=== PATIENT | female | born 1945 | race Caucasian/White ===

== ENCOUNTER → 2016-07-22 | Outpatient (CLI) | payer MEDICARE, BC | END | disposition home or self-care (01) | LOC: MW.CHOBGYN 09:43 | PROVIDERS: ATTEND Nurse Practitioner Women's Health | DX: R39.9 Unspecified symptoms and signs involving the genitourinary system (principal); N39.0 Urinary tract infection, site not specified | CPT/HCPCS: 81001; G0463 ==

== ENCOUNTER 2020-06-18 08:52 | Emergency (ER) | payer MEDICARE, BC ==
--- NOTE | 2020-06-18 09:03 | EDM.PDOC ---
ED HPI GENERAL MEDICAL PROBLEM - General Stated Complaint: POSSIBLE COVID POSITIVE Time Seen by Provider: 06/18/20 08:59 Source of Information: Reports: Patient History Limitations: Reports: No Limitations - History of Present Illness INITIAL COMMENTS - FREE TEXT/NARRATIVE: 75-year-old female with history of hypothyroidism only presents with Covid symptoms. Over the past 2 days, she notes cough with sputum production, generalized malaise, myalgias, ageusia, anosmia, fever, shortness of breath, chest congestion, diarrhea. ROS: A 10-point review of systems, other than pertinent positives and negatives as stated per HPI, is otherwise negative Past medical history: No additional pertinent history Past Surgical history: No additional pertinent history Social history: No additional pertinent history Family history: No additional pertinent history PHYSICAL EXAM General: AOx4, GCS = 15, No distress HEENT: dry mucous membrane Neck: supple, no meningismus, no Kernig or Brudzinski Cardiac: S1S2 RRR Respiratory: CTAB, no crackles or rales, no wheezing Abdomen: Soft, nontender, no rebound or guarding, nondistended, no pulsatile mass. Back: nontender Musculoskeletal: NVI distally, no deformity Neuro: No focal deficits, CN 2 - 12 WNL. - Related Data Allergies Allergy/AdvReac Type Severity Reaction Status Date / Time risedronate sodium Allergy Swelling Verified 06/18/20 09:15 [From Actonel] Home Meds: Home Meds Levothyroxine Sodium [Synthroid] 100 mcg PO DAILY 10/10/13 [History] Aspirin [Aspirin EC] 325 mg PO DAILY #30 tablet. 01/04/16 [Rx] dexAMETHasone [Decadron] 6 mg PO DAILY 5 Days #5 tablet 06/18/20 [Rx] Past Medical History HEENT History: Reports: Impaired Vision DENTAL SCHEDULER History: Reports: Other (See Below) Other DENTAL SCHEDULER History: ovarian cyst removal Endocrine/Metabolic History: Reports: Other (See Below) Other Endocrine/Metabolic History: thyroid problems - Past Surgical History HEENT Surgical History: Reports: Other (See Below) Social & Family History - Family History Cardiac: Reports: [place] Respiratory: Reports: Asthma GI: Reports: None : Reports: None OBGYN: Reports: None Musculoskeletal: Reports: Arthritis Neurological: Reports: None Endocrine/Metabolic: Reports: Diabetes, Type I Oncologic: Reports: Breast ED ROS GENERAL - Review of Systems Review Of Systems: See Below (see dictation) ED EXAM, GENERAL - Physical Exam Exam: See Below (see dictation) Course - Vital Signs Last Recorded V/S: Last Vital Signs Temp 97.4 F 06/18/20 09:17 Pulse 93 06/18/20 10:37 Resp 20 06/18/20 10:37 BP 101/62 06/18/20 10:37 Pulse Ox 94 L 06/18/20 10:37 - Orders/Labs/Meds Orders: Active Orders 24 hr Category Date Time Status Cardiac Monitoring [RC] . DIRECTED Care 06/18/20 09:29 Active Pulse Oximetry [RC] ASDIRECTED Care 06/18/20 09:29 Active Sodium Chloride 0.9% [Saline Flush] Med 06/18/20 09:29 Active 10 ml FLUSH ASDIRECTED PRN Sodium Chloride 0.9% [Saline Flush] Med 06/18/20 09:29 Active 2.5 ml FLUSH ASDIRECTED PRN Saline Lock Insert [OM.PC] Stat Oth 06/18/20 09:29 Ordered Medication Orders Sodium Chloride (Saline Flush) 10 ml FLUSH ASDIRECTED PRN PRN Reason: Keep Vein Open Sodium Chloride (Saline Flush) 2.5 ml FLUSH ASDIRECTED PRN PRN Reason: Keep Vein Open Labs: Laboratory Tests 06/18/20 06/18/20 06/18/20 Range/Units 09:32 09:32 09:32 WBC 5.00 (4.0-11.0) K/uL RBC 5.12 (4.30-5.90) M/uL Hgb 15.2 (12.0-16.0) g/dL Hct 44.9 (36.0-46.0) % MCV 87.7 (80.0-98.0) fL MCH 29.7 (27.0-32.0) pg MCHC 33.9 (31.0-37.0) g/dL RDW Std Deviation 43.3 (28.0-62.0) fl RDW Coeff of Geri 13 (11.0-15.0) % Plt Count 170 (150-400) K/uL MPV 10.50 (7.40-12.00) fL Neut % (Auto) 76.8 (48.0-80.0) % Lymph % (Auto) 9.6 L (16.0-40.0) % [place] % (Auto) 13.4 (0.0-15.0) % Eos % (Auto) 0.0 (0.0-7.0) % Baso % (Auto) 0.2 (0.0-1.5) % Neut # (Auto) 3.8 (1.4-5.7) K/uL Lymph # (Auto) 0.5 L (0.6-2.4) K/uL [place] # (Auto) 0.7 (0.0-0.8) K/uL Eos # (Auto) 0.0 (0.0-0.7) K/uL Baso # (Auto) 0.0 (0.0-0.1) K/uL Nucleated RBC % 0.0 /100WBC Nucleated RBCs # 0 K/uL Sodium 138 (136-145) mmol/L Potassium 3.7 (3.5-5.1) mmol/L Chloride 101 (98-107) mmol/L Carbon Dioxide 22.9 (21.0-32.0) mmol/L BUN 13 (7.0-18.0) mg/dL Creatinine 1.1 H (0.6-1.0) mg/dL Est Cr Clr Drug Dosing 32.32 mL/min Estimated GFR (MDRD) 48.2 ml/min Glucose 139 H (74-106) mg/dL Calcium 8.6 (8.5-10.1) mg/dL Total Bilirubin 0.6 (0.2-1.0) mg/dL AST 29 (15-37) IU/L ALT 29 (14-63) IU/L Alkaline Phosphatase 69 (46-116) U/L Troponin I < 0.050 (0.000-0.056) ng/mL B-Natriuretic Peptide 305 H (<100) PG/ML Total Protein 7.1 (6.4-8.2) g/dL Albumin 3.4 (3.4-5.0) g/dL Globulin 3.7 (2.6-4.0) g/dL Albumin/Globulin Ratio 0.9 (0.9-1.6) SARS-CoV-2 RNA (TIAGO) (NEGATIVE) 06/18/20 Range/Units 09:39 WBC (4.0-11.0) K/uL RBC (4.30-5.90) M/uL Hgb (12.0-16.0) g/dL Hct (36.0-46.0) % MCV (80.0-98.0) fL MCH (27.0-32.0) pg MCHC (31.0-37.0) g/dL RDW Std Deviation (28.0-62.0) fl RDW Coeff of Geri (11.0-15.0) % Plt Count (150-400) K/uL MPV (7.40-12.00) fL Neut % (Auto) (48.0-80.0) % Lymph % (Auto) (16.0-40.0) % [place] % (Auto) (0.0-15.0) % Eos % (Auto) (0.0-7.0) % Baso % (Auto) (0.0-1.5) % Neut # (Auto) (1.4-5.7) K/uL Lymph # (Auto) (0.6-2.4) K/uL [place] # (Auto) (0.0-0.8) K/uL Eos # (Auto) (0.0-0.7) K/uL Baso # (Auto) (0.0-0.1) K/uL Nucleated RBC % /100WBC Nucleated RBCs # K/uL Sodium (136-145) mmol/L Potassium (3.5-5.1) mmol/L Chloride (98-107) mmol/L Carbon Dioxide (21.0-32.0) mmol/L BUN (7.0-18.0) mg/dL Creatinine (0.6-1.0) mg/dL Est Cr Clr Drug Dosing mL/min Estimated GFR (MDRD) ml/min Glucose (74-106) mg/dL Calcium (8.5-10.1) mg/dL Total Bilirubin (0.2-1.0) mg/dL AST (15-37) IU/L ALT (14-63) IU/L Alkaline Phosphatase (46-116) U/L Troponin I (0.000-0.056) ng/mL B-Natriuretic Peptide (<100) PG/ML Total Protein (6.4-8.2) g/dL Albumin (3.4-5.0) g/dL Globulin (2.6-4.0) g/dL Albumin/Globulin Ratio (0.9-1.6) SARS-CoV-2 RNA (TIAGO) POSITIVE H (NEGATIVE) Meds: Medications Generic Name Dose Route Start Last Admin Trade Name Freq PRN Reason Stop Dose Admin Sodium Chloride 10 ml 06/18/20 09:29 Saline Flush FLUSH ASDIRECTED PRN Keep Vein Open Sodium Chloride 2.5 ml 06/18/20 09:29 Saline Flush FLUSH ASDIRECTED PRN Keep Vein Open - Re-Assessments/Exams Free Text/Narrative Re-Assessment/Exam: 06/18/20 1015 Patient desatted to 88% on room air, placed on 2 L nasal cannula which improved to 92%. She will be fitted for oxygen with [employer] in the ER today. 06/18/20 12:15 After oxygen fitting in the ER, she is stable for discharge. I performed a repeat exam and did not appreciate new abnormal findings. Patient exhibits normal vital signs and has a normal gait on road test. I advised the patient to return to the ER for reevaluation if symptoms worsened, including fever, worsening pain, or any other worrisome symptoms. She has been coached to titrate up to 6 L nasal cannula as needed for hypoxia. I instructed the patient to follow up with their PCP within 2-3 days. MEDICAL DECISION MAKING: I reviewed the patients past medical records, lab and radiographic findings. I discussed the case with the patient. My differential diagnosis included: Covid, pneumonia, ACS. This patient was evaluated for her symptoms worrisome for Covid. She was tested positive. She was hypoxic on room air but improved with nasal cannula. She was fitted for oxygen. She is well appearing, not in respiratory distress,no tachyneia, no retractions. There were no other findings warranting admission to the hospital, she does not have pneumonia, she does not demonstrate signs of ACS. I instructed her to return immediately for worsening symptoms, sob, chest pain, lightheadedness or other concerns. Patient voiced understanding and questions answered. Her chest x-ray did not demonstrate pneumonia. Her troponin and EKG were unremarkable, I do not suspect atypical chest pain. Her BNP was slightly elevated, she is stable for outpatient follow-up for outpatient echo. She was evaluated in the context of the global COVID-19 pandemic, which necessitated consideration that the patient might be at risk for infection with the SARS-CoV-2 virus that causes COVID-19. Institutional protocols and algorithms that pertain to the evaluation of patients at risk for COVID-19 are in a state of rapid change based on information released by regulatory bodies including the CDC and federal and state organizations. These policies and algorithms were followed during the patient's care. I wore full PPE, N95, face shield, gown and gloves throughout my evaluation and care of this patient. I recommended home isolation. given home isolation instructions. Departure - Departure Time of Disposition: 12:16 Disposition: Home, Self-Care 01 Condition: Good Clinical Impression: COVID-19, Hypoxia - Discharge Information *PRESCRIPTION DRUG MONITORING PROGRAM REVIEWED*: Not Applicable *COPY OF PRESCRIPTION DRUG MONITORING REPORT IN PATIENT TRES: Not Applicable Prescriptions: dexAMETHasone [Decadron] 6 mg PO DAILY 5 Days #5 tablet Instructions: Hypoxia, COVID-19 Frequently Asked Questions, COVID-19, Home Oxygen Use, Adult, Oximetry, Prevent the Spread of COVID-19 if You Are Sick - [facility] Referrals: Martinez Osullivan MD [Primary Care Provider] - 3 Days Forms: ED Department Discharge Additional Instructions: The need for follow-up, as well as the timing and circumstances, are variable depending upon the specifics of your emergency department visit. If you don't have a primary care physician on staff, we will provide you with a referral. We always advise you to contact your personal physician following an emergency department visit to inform them of the circumstance of the visit and for follow-up with them and/or the need for any referrals to a consulting specialist. The emergency department will also refer you to a specialist when appropriate. This referral assures that you have the opportunity for follow-up care with a specialist. All of these measure are taken in an effort to provide you with optimal care, which includes your follow-up. Under all circumstances we always encourage you to contact your private physician who remains a resource for coordinating your care. When calling for follow-up care, please make the office aware that this follow-up is from your recent emergency room visit. If for any reason you are refused follow-up, please contact the [facility] Emergency Department at and asked to speak to the emergency department charge nurse. If you do not have a primary care doctor, please follow up with the clinics below within 3-[address] [facility] [address] [place] [id number] [address] Sepsis Event Note (ED) - Focused Exam Vital Signs: Vital Signs Temp Pulse Resp BP Pulse Ox 06/18/20 10:37 93 20 101/62 94 L 06/18/20 09:32 92 L 06/18/20 09:30 20 88 L 06/18/20 09:17 97.4 F 110 H 20 109/71 91 L - My Orders Last 24 Hours: My Active Orders 06/18/20 09:29 Cardiac Monitoring [RC] . DIRECTED Pulse Oximetry [RC] ASDIRECTED Sodium Chloride 0.9% [Saline Flush] 10 ml FLUSH ASDIRECTED PRN Sodium Chloride 0.9% [Saline Flush] 2.5 ml FLUSH ASDIRECTED PRN Saline Lock Insert [OM.PC] Stat - Assessment/Plan Last 24 Hours: My Active Orders 06/18/20 09:29 Cardiac Monitoring [RC] . DIRECTED Pulse Oximetry [RC] ASDIRECTED Sodium Chloride 0.9% [Saline Flush] 10 ml FLUSH ASDIRECTED PRN Sodium Chloride 0.9% [Saline Flush] 2.5 ml FLUSH ASDIRECTED PRN Saline Lock Insert [OM.PC] Stat
[2020-06-18] MEDS ORDERED: Sodium Chloride 0.9% 10 ML Syringe FLUSH PRN (09:29)
[2020-06-18] MEDS ORDERED: Sodium Chloride 0.9% 2.5 ML Syringe FLUSH PRN (09:29)
--- NOTE | 2020-06-18 09:58 | CR ---
INDICATION: Cough and atelectasis TECHNIQUE: Chest 1 views COMPARISON: January 03, 2016 FINDINGS: Cardiovascular and mediastinum: Heart size and vasculature are normal in caliber and appearance. Lungs and pleural spaces: Lungs are clear. No sign of infiltrate or mass. No sign of pleural effusion. No pneumothorax. Bones and soft tissues: No significant findings. IMPRESSION: No acute findings and no significant changes from the prior exam. Dictated by Zack Mcqueen MD @ Jun 18 2020 9:55AM Signed by Dr. Zack Mcqueen @ Jun 18 2020 9:57AM
[2020-06-18 10:14] LABS: BLOOD UREA NITROGEN,BUN 13 mg/dL (7.0-18.0); CARBON DIOXIDE,CO2 22.9 mmol/L (21.0-32.0); CHLORIDE,CL 101 mmol/L (98-107); GLUCOSE RANDOM 139 mg/dL (74-106); POTASSIUM,K 3.7 mmol/L (3.5-5.1); SODIUM,NA 138 mmol/L (136-145)
[2020-06-18 12:19] VITALS: BP 97/64; PULSE 110
== END 2020-06-18 12:50 | disposition home or self-care (01) ==
LOC: MW.ED 08:52
DX: U07.1 COVID-19 (principal); R09.02 Hypoxemia; E03.9 Hypothyroidism, unspecified; Z88.8 Allergy status to other drugs, medicaments and biological substances; Z79.82 Long term (current) use of aspirin; Z79.899 Other long term (current) drug therapy
CPT/HCPCS: 36415; 71045; 80053; 83880; 84484; 85025; 99285; U0002; 99283

== ENCOUNTER 2024-03-01 23:09 | Inpatient (IN) | payer MEDICARE, BC ==
[2024-03-01 23:45] LABS: BASOPHILS ABSOLUTE AUTO 0.03 K/uL (0.00-0.20); BASOPHILS PERCENT AUTO 0.2 % (0.0-1.0); HEMATOCRIT 44.5 % (37.0-47.0); HEMOGLOBIN 14.9 g/dL (12.0-16.0); IMMATURE GRAN ABSOLUTE AUTO 0.07 K/uL (0.00-0.05); IMMATURE GRAN PERCENT AUTO 0.5 % (0.0-0.4); LYMPHOCYTES ABSOLUTE AUTO 0.76 K/uL (1.00-4.80); LYMPHOCYTES PERCENT AUTO 5.8 % (24.0-44.0); MEAN CORPUSCULAR HEMOGLOBIN 30.8 pg (28.0-32.0); MEAN CORPUSCULAR HGB CONC 33.5 g/dL (32.0-36.0); MEAN CORPUSCULAR VOLUME 91.9 fL (83.0-99.0); MEAN PLATELET VOLUME 9.9 fL (9.4-12.3); MONOCYTES ABSOLUTE AUTO 0.94 K/uL (0.00-0.80); MONOCYTES PERCENT AUTO 7.1 % (0.0-8.0); NEUTROPHILS ABSOLUTE AUTO 11.41 K/uL (1.80-7.70); NEUTROPHILS PERCENT AUTO 86.4 % (41.0-71.0); PLATELET COUNT,PLT 191 K/uL (150-400); RED BLOOD CELL COUNT 4.84 M/uL (4.10-5.30); WHITE BLOOD CELL COUNT,WBC 13.21 K/uL (3.9-11.3)
[2024-03-02 00:07] LABS: A/G RATIO 1.1 (0.9-1.6); ALBUMIN 3.9 g/dL (3.4-5.0); CALCIUM 9.3 mg/dL (8.5-10.1); CARBON DIOXIDE,CO2 21.3 mmol/L (21.0-32.0); CREATININE 1.4 mg/dL (0.6-1.0); EST CRCL DRUG DOSING (CG) 23.02 mL/min; POTASSIUM,K 4.3 mmol/L (3.5-5.1); PROTEIN TOTAL,TP 7.3 g/dL (6.4-8.2)
[2024-03-02] MEDS: Morphine 4 MG/ML Syringe IVPUSH ONE (00:22)
[2024-03-02] MEDS: Acetaminophen 325 MG Tab PO ONE (00:52)
[2024-03-02 01:03] LABS: INR 2.49 (0.86-1.11)
[2024-03-02 06:54] LABS: BASOPHILS ABSOLUTE AUTO 0.02 K/uL (0.00-0.20); BASOPHILS PERCENT AUTO 0.2 % (0.0-1.0); HEMATOCRIT 39.4 % (37.0-47.0); HEMOGLOBIN 13.6 g/dL (12.0-16.0); IMMATURE GRAN ABSOLUTE AUTO 0.05 K/uL (0.00-0.05); IMMATURE GRAN PERCENT AUTO 0.4 % (0.0-0.4); LYMPHOCYTES ABSOLUTE AUTO 0.73 K/uL (1.00-4.80); LYMPHOCYTES PERCENT AUTO 6.5 % (24.0-44.0); MEAN CORPUSCULAR HEMOGLOBIN 30.9 pg (28.0-32.0); MEAN CORPUSCULAR HGB CONC 34.5 g/dL (32.0-36.0); MEAN CORPUSCULAR VOLUME 89.5 fL (83.0-99.0); MEAN PLATELET VOLUME 9.7 fL (9.4-12.3); MONOCYTES ABSOLUTE AUTO 0.91 K/uL (0.00-0.80); MONOCYTES PERCENT AUTO 8.1 % (0.0-8.0); NEUTROPHILS ABSOLUTE AUTO 9.52 K/uL (1.80-7.70); NEUTROPHILS PERCENT AUTO 84.8 % (41.0-71.0); PLATELET COUNT,PLT 185 K/uL (150-400); WHITE BLOOD CELL COUNT,WBC 11.23 K/uL (3.9-11.3)
[2024-03-02 07:17] LABS: A/G RATIO 1.1 (0.9-1.6); ALBUMIN 3.4 g/dL (3.4-5.0); BILIRUBIN TOTAL 1.3 mg/dL (0.2-1.0); CALCIUM 8.9 mg/dL (8.5-10.1); CARBON DIOXIDE,CO2 25.4 mmol/L (21.0-32.0); CREATININE 1.3 mg/dL (0.6-1.0); EST CRCL DRUG DOSING (CG) 26.04 mL/min; PROTEIN TOTAL,TP 6.4 g/dL (6.4-8.2)
[2024-03-02] MEDS ORDERED: Sodium Chloride 0.9% 2.5 ML Syringe FLUSH PRN (08:29)
[2024-03-02] MEDS ORDERED: Ondansetron 4 MG/2 ML SDV IVPUSH PRN ×2 (08:29→12:32)
[2024-03-02] MEDS ORDERED: Sodium Chloride 0.9% 10 ML Syringe FLUSH PRN (08:29)
[2024-03-02] MEDS ORDERED: Polyethylene Glycol 3350 Powder 17 GM Packet PO PRN (09:00)
[2024-03-02] MEDS: Metoprolol Succinate 25 MG Tab.ER PO ONE (09:42)
[2024-03-02] MEDS: PHYTONADIONE IV ONE (09:54)
[2024-03-02] MEDS: SODIUM CHLORIDE 0.9% IV ONE (09:54)
[2024-03-02] MEDS ORDERED: Ropivacaine 49.25 ML, Ketorolac 30 MG, EPINEPHrine 0.5 MG, cloNIDine 80 MCG in Sodium C... INJECT SCH (11:00)
[2024-03-02 11:38] LABS: INR 2.16 (0.86-1.11)
[2024-03-02 11:45] VITALS: PULSE 117
[2024-03-02] MEDS ORDERED: Naloxone 0.4 MG/ML SDV IVPUSH PRN ×2 (11:57→12:32)
[2024-03-02] MEDS ORDERED: Morphine 2 MG/ML SYRINGE IVPUSH PRN ×2 (11:57→12:32)
[2024-03-02] MEDS ORDERED: ceFAZolin 2 GM in Sodium Chloride 0.9% 50 ML IV SCH (12:00)
[2024-03-02] MEDS ORDERED: propofoL 0 ML ONE (12:14)
[2024-03-02] MEDS ORDERED: fentaNYL 250 MCG/5 ML SDV ONE (12:14)
[2024-03-02] MEDS ORDERED: Ketamine HCL/NACL, ISO-OSM 50 MG/5 ML Syringe ONE ×3 (12:14→13:41)
[2024-03-02] MEDS ORDERED: Metoclopramide 10 MG/2 ML SDV IVPUSH PRN (12:32)
[2024-03-02] MEDS ORDERED: Albuterol 0.083% 2.5 MG/3 ML Neb Soln NEB PRN (12:32)
[2024-03-02] MEDS ORDERED: Phenylephrine HCl In 0.9% NaCl 1 MG/10 ML Syringe IVPUSH PRN (12:32)
[2024-03-02] MEDS ORDERED: HYDROmorphone 1 MG/ML Syringe IVPUSH PRN (12:32)
[2024-03-02] MEDS ORDERED: fentaNYL 50 MCG/ML SDV IVPUSH PRN (12:32)
[2024-03-02] MEDS ORDERED: propofoL 50 ML ONE ×2 (13:19→13:43)
[2024-03-02] MEDS ORDERED: Water For Injection, Sterile 20 ML ONE (13:19)
[2024-03-02] MEDS ORDERED: Phytonadione 5 MG in Sodium Chloride 0.9% 50 ML IV ONE (13:25)
[2024-03-02] MEDS ORDERED: PHYTONADIONE IV ONE (13:30)
[2024-03-02] MEDS ORDERED: SODIUM CHLORIDE 0.9% IV ONE (13:30)
[2024-03-02] MEDS ORDERED: Tranexamic Acid 1,000 MG/10 ML Vial ONE (13:35)
[2024-03-02] MEDS ORDERED: ceFAZolin 2 GM Vial ONE (13:39)
[2024-03-02] MEDS ORDERED: Esmolol 100 MG/10 ML SDV ONE (14:12)
[2024-03-02] MEDS ORDERED: Metoprolol Tartrate 5 MG/5 ML SDV ONE ×2 (14:12→15:12)
[2024-03-02] MEDS ORDERED: Phenylephrine 1% 10 MG/ML SDV ONE ×5 (14:12→15:29)
[2024-03-02] MEDS ORDERED: Famotidine 20 MG/2 ML SDV ONE (14:25)
[2024-03-02] MEDS ORDERED: Ondansetron 4 MG/2 ML SDV ONE (14:26)
[2024-03-02] MEDS ORDERED: Dexamethasone 4 MG/ML 5 ML MDV ONE (14:26)
[2024-03-02] MEDS ORDERED: Phenylephrine HCl In 0.9% NaCl 1 MG/10 ML Syringe ONE (15:29)
[2024-03-02] MEDS ORDERED: Succinylcholine/Sod PF 100 MG/5 ML SYRINGE IV ONE (15:29)
[2024-03-02] MEDS ORDERED: niCARdipine/Normal Saline 0 ML ONE (15:43)
[2024-03-02] MEDS ORDERED: Sugammadex Sodium 200 MG/2 ML VIAL IV ONE (15:55)
[2024-03-02] MEDS ORDERED: traMADol 50 MG Tab PO PRN (16:04)
[2024-03-02] MEDS ORDERED: ceFAZolin 1 GM in Sodium Chloride 0.9% 50 ML IV SCH (16:15)
[2024-03-02] MEDS: Norepinephrine Bit/D5W Premix 250 ML IV SCH (17:00)
[2024-03-02] MEDS ORDERED: EPINEPHrine 1:10,000 1 MG/10 ML Syringe IV ONE ×2 (17:00)
[2024-03-02 17:17] LABS: BASOPHILS ABSOLUTE AUTO 0.03 K/uL (0.00-0.20); BASOPHILS PERCENT AUTO 0.2 % (0.0-1.0); EOSINOPHILS ABSOLUTE AUTO 0.01 K/uL (0.00-0.45); EOSINOPHILS PERCENT AUTO 0.1 % (0.0-6.0); HEMATOCRIT 38.4 % (37.0-47.0); HEMOGLOBIN 12.7 g/dL (12.0-16.0); IMMATURE GRAN PERCENT AUTO 1.4 % (0.0-0.4); LYMPHOCYTES ABSOLUTE AUTO 1.36 K/uL (1.00-4.80); LYMPHOCYTES PERCENT AUTO 9.5 % (24.0-44.0); MEAN CORPUSCULAR HGB CONC 33.1 g/dL (32.0-36.0); MEAN CORPUSCULAR VOLUME 93.7 fL (83.0-99.0); MONOCYTES ABSOLUTE AUTO 0.85 K/uL (0.00-0.80); MONOCYTES PERCENT AUTO 5.9 % (0.0-8.0); NEUTROPHILS ABSOLUTE AUTO 11.89 K/uL (1.80-7.70); NEUTROPHILS PERCENT AUTO 82.9 % (41.0-71.0); PLATELET COUNT,PLT 162 K/uL (150-400); WHITE BLOOD CELL COUNT,WBC 14.34 K/uL (3.9-11.3)
[2024-03-02 17:23] LABS: BICARBONATE,ARTERIAL 17 mEq/L (22-26); PCO2 ARTERIAL 35 mmHG (35-45); PO2 ARTERIAL 281 mmHG (80-105)
[2024-03-02 17:24] LABS: BASE EXCESS ARTERIAL -8.6 (-2.0-3.0)
[2024-03-02 17:47] LABS: A/G RATIO 0.9 (0.9-1.6); ALBUMIN 2.2 g/dL (3.4-5.0); BILIRUBIN TOTAL 1.5 mg/dL (0.2-1.0); CALCIUM 7.2 mg/dL (8.5-10.1); CARBON DIOXIDE,CO2 17.6 mmol/L (21.0-32.0); CREATININE 1.6 mg/dL (0.6-1.0); EST CRCL DRUG DOSING (CG) 21.16 mL/min; MAGNESIUM 2.2 mg/dL (1.8-2.4); POTASSIUM,K 3.7 mmol/L (3.5-5.1); PROTEIN TOTAL,TP 4.7 g/dL (6.4-8.2)
[2024-03-02] MEDS ORDERED: Heparin Sodium 5,000 Units/ML Vial ONE (17:54)
[2024-03-02] MEDS ORDERED: EPINEPHrine 1 MG/1 ML Amp ONE (17:54)
[2024-03-02] MEDS ORDERED: Metoprolol Succinate 25 MG Tab.ER PO SCH (18:00)
[2024-03-02] MEDS: Vasopressin 20 UNITS in Sodium Chloride 0.9% 50 ML IV SCH (18:34)
[2024-03-02 18:59] LABS: INR 2.63 (0.86-1.11)
[2024-03-02] MEDS: Lactated Ringers 1,000 ML IV ONE (19:01)
[2024-03-02 19:04] LABS: PTT,PARTIAL THROMBOPLSTIN TIME > 139.0 SEC (23.9-30.7)
[2024-03-02] MEDS: propofoL 100 ML IV SCH (19:58)
[2024-03-02] MEDS: propofoL 100 ML ONE (19:59)
[2024-03-02] MEDS: fentaNYL/Normal Saline 2,500 MCG in Premix Bag 1 BAG IV PRN (20:18)
[2024-03-02 20:36] VITALS: BP 94/62
[2024-03-02] MEDS ORDERED: Acetaminophen 325 MG Tab PO SCH (21:00)
[2024-03-02] MEDS ORDERED: Docusate Sodium 100 MG Cap PO SCH (21:00)
[2024-03-03] MEDS ORDERED: Levothyroxine 100 MCG Tab PO SCH (07:30)
[2024-03-03] MEDS ORDERED: Losartan 25 MG Tab PO SCH (09:00)
[2024-03-03] MEDS ORDERED: Empagliflozin 10 MG Tab PO SCH (09:00)
[2024-03-03] MEDS ORDERED: atorvaSTATin 10 MG Tab PO SCH (09:00)
[2024-03-03] MEDS ORDERED: Metoprolol Succinate 25 MG Tab.ER PO SCH (18:00)
[2024-03-06] MEDS ORDERED: Levothyroxine 50 MCG Tab PO SCH (07:30)
== END 2024-03-02 21:05 | DRG 522 ==
LOC: MW.ED 23:09 → MW.MS 03-02 04:20 → OBSVTOIN 03-02 08:28 → MW.ICU 03-02 18:22
PROVIDERS: ADMIT Family Medicine; ATTEND Family Medicine
PROC: 0SRR0J9 Replacement of Right Hip Joint, Femoral Surface with Synthetic Substitute, Cemented, Open Approach (ICD-10-PCS; principal; 2024-03-02 12:45)
DX: S72.001A Fracture of unspecified part of neck of right femur, initial encounter for closed fracture (principal); I42.8 Other cardiomyopathies; I48.21 Permanent atrial fibrillation; J98.11 Atelectasis; D72.829 Elevated white blood cell count, unspecified; Z88.8 Allergy status to other drugs, medicaments and biological substances; Z88.1 Allergy status to other antibiotic agents; I08.3 Combined rheumatic disorders of mitral, aortic and tricuspid valves; Z68.20 Body mass index [BMI] 20.0-20.9, adult; Z66 Do not resuscitate; S00.83XA Contusion of other part of head, initial encounter; I12.9 Hypertensive chronic kidney disease with stage 1 through stage 4 chronic kidney disease, or unspecified chronic kidney disease; N18.30 Chronic kidney disease, stage 3 unspecified; H54.7 Unspecified visual loss; E03.9 Hypothyroidism, unspecified; E66.9 Obesity, unspecified; E11.9 Type 2 diabetes mellitus without complications; E78.5 Hyperlipidemia, unspecified; Z79.01 Long term (current) use of anticoagulants; Z98.49 Cataract extraction status, unspecified eye; Z86.16 Personal history of COVID-19; Z91.040 Latex allergy status; Z79.899 Other long term (current) drug therapy; Z79.890 Hormone replacement therapy; Z87.891 Personal history of nicotine dependence; W19.XXXA Unspecified fall, initial encounter
CPT/HCPCS: 36415; 70450; 71045; 72125; 73030; 73501; 73700; 80053 ×2; 82947; 83735; 85025 ×2; 85610; 99285; A9270; 36600; 82803; 84484; 85730; 93005; 93010; 94002; G0378; J0131; J0171; J0330; J0690; J0735; J1100; J1644; J1885; J2371; J2405; J2704; J2795; J3010; J3430; J3490; J7120